=== PATIENT | female | born 1960 | race American Indian/Alaskan Native ===

== ENCOUNTER 2016-11-25 18:19 | Emergency (ER) | payer OTHER ==
[2016-11-25 18:48] VITALS: BP 159/90
[2016-11-25] MEDS ORDERED: MOTRIN PO ONE (19:37)
--- NOTE | 2016-11-25 20:57 | XRay Report ---
FINAL REPORT PROCEDURE: XR ELBOW 3+V RT TECHNIQUE: Right elbow radiographs, including AP, lateral, and oblique views. CPT 30829 HISTORY: elbow pain post fall COMPARISON: No prior studies are available for comparison. FINDINGS: Fracture (s) and/or Dislocation(s): None . Alignment: Normal . Joint space(s): Normal . Soft tissues: Normal . Bone mineralization: Normal . Foreign bodies: None . IMPRESSION: There is no fracture or dislocation. There is no joint effusion.
--- NOTE | 2016-11-25 21:03 | XRay Report ---
FINAL REPORT PROCEDURE: XR FOOT 3+V RT TECHNIQUE: Right foot radiographs, AP, lateral, and oblique views. CPT 79055 HISTORY: foot pain post fall COMPARISON: No prior studies are available for comparison. FINDINGS: Fracture (s) and/or Dislocation(s): None . Alignment: Normal . Joint space(s): There is mild degenerative arthrosis of the 1st metatarsophalangeal joint.. Soft tissues: Normal . Bone mineralization: Normal . Foreign bodies: None . Calcaneal spurring: There is a small inferior calcaneal spur.. IMPRESSION: There is no acute bony or soft tissue abnormality.
--- NOTE | 2016-11-25 21:07 | XRay Report ---
FINAL REPORT PROCEDURE: XR FEMUR 2+V RT TECHNIQUE: Right femur radiographs, AP and lateral views. HISTORY: thigh pain post fall COMPARISON: No prior studies are available for comparison. FINDINGS: Fracture (s) and/or Dislocation(s): None . Joint space(s): Normal . Soft tissues: Normal . Bone mineralization: Normal . Foreign bodies: None . IMPRESSION: Normal Examination
--- NOTE | 2016-11-26 05:44 | Emergency Department Report ---
Entered by REGAN CHOWDHURY, acting as scribe for BÁRBARA BRYANT NP. ED Fall HPI - General Chief Complaint: Fall Stated Complaint: FALL/ELBOW PAIN/LEG PAIN Time Seen by Provider: 11/25/16 19:11 Source: patient Mode of arrival: Ambulatory - History of Present Illness Initial Comments: This is a 56 y/o female, nontoxic, well nourished in appearance, no acute signs of distress with a PMHx of cancer, diabetes mellitus, and HTN presents to the ED c/o a fall injury that occurred last night. Patient states she tripped over a wooden pallet at work last night and subsequently fell on her right side. In the ED, patient c/o right elbow pain, right foot pain, and right thigh pain, but she denies LOC, head injury, trauma, abdominal pain, nausea, vomiting, fever , chills, chest pain, SOB, ROCHA or dizziness, numbness, and tingling. Patient stated she landed on her right elbow and right thigh area. Rates all pain a 3/ 10 in severity, which she describes as throbbing in quality. Aggravated with movement and alleviated with immobilization. NKDA. L[place]TON Complaint: fall -: Last night Fall From: standing When Fall Occurred: 24 hours [employer] Fall Witnessed: yes, by bystander Place Fall Occurred: work Loss of Consciousness: none Prolonged Down Time?: unclear Symptoms Prior to Fall: none Location - Extremities: Right: Elbow, Thigh, Foot Severity: mild Severity scale (0 -10): 3 Quality: other (throbbing) Context: tripped/slipped Associated Symptoms: denies. denies: headache, neck pain, numbness, weakness, chest paint, shortness of breath, abdominal pain, hematuria, unable to walk, lightheaded, vertigo, confusion - Related Data Home Medications Medication Instructions Recorded Confirmed Last Taken Lisinopril [Zestril TAB] 10 mg PO QDAY 05/29/15 05/29/15 05/28/15 Previous Rx's Medication Instructions Recorded Last Taken Type Azithromycin [Zithromax Z-KRISTINA] 250 mg PO QDAY #4 tablet 05/29/15 Unknown Rx Ibuprofen [Motrin] 800 mg PO Q8HR PRN #10 tablet 05/29/15 Unknown Rx Promethazine /Codeine 5 ml PO Q6H PRN #90 ml 05/29/15 Unknown Rx [Phenergan/Codeine 6.25-10 mg/5Ml] Ibuprofen [Motrin 600 MG tab] 600 mg PO Q8H PRN #30 tablet 11/25/16 Unknown Rx Allergies Allergy/AdvReac Type Severity Reaction Status Date / Time No Known Allergies Allergy Verified 11/25/16 18:43 ED Review of Systems Comment: All other systems reviewed and negative Constitutional: denies: chills, fever Eyes: denies: eye pain, eye discharge, vision change ENT: denies: ear pain, throat pain Respiratory: denies: cough, orthopnea, shortness of breath, SOB with exertion, SOB at rest, stridor, wheezing Cardiovascular: denies: chest pain, palpitations, dyspnea on exertion, orthopnea , edema, syncope, paroxysmal nocturnal dyspnea Endocrine: no symptoms reported Gastrointestinal: denies: abdominal pain, nausea, vomiting, diarrhea Genitourinary: denies: urgency, dysuria, discharge Musculoskeletal: arthralgia (RT foot pain, RT elbow pain, and RT thigh pain). denies: back pain, joint swelling, myalgia Skin: denies: rash, lesions Neurological: denies: headache, weakness, numbness, paresthesias, confusion, abnormal gait, vertigo Psychiatric: denies: anxiety, depression Hematological/Lymphatic: denies: easy bleeding, easy bruising ED Past Medical Hx - Past Medical History Previous Medical History?: Yes Hx Hypertension: Yes Hx Diabetes: Yes Hx of Cancer: Yes - Surgical History Past Surgical History?: Yes Additional Surgical History: HYSTERECTOMY - Family History Family history: no significant - Social History Smoking Status: Never Smoker Substance Use Type: None - Medications Home Medications: Home Medications Medication Instructions Recorded Confirmed Last Taken Type Azithromycin [Zithromax Z-KRISTINA] 250 mg PO QDAY #4 tablet 05/29/15 Unknown Rx Ibuprofen [Motrin] 800 mg PO Q8HR PRN #10 tablet 05/29/15 Unknown Rx Lisinopril [Zestril TAB] 10 mg PO QDAY 05/29/15 05/29/15 05/28/15 History Promethazine /Codeine 5 ml PO Q6H PRN #90 ml 05/29/15 Unknown Rx [Phenergan/Codeine 6.25-10 mg/5Ml] Ibuprofen [Motrin 600 MG tab] 600 mg PO Q8H PRN #30 tablet 11/25/16 Unknown Rx ED Physical Exam - General Limitations: No Limitations General appearance: alert, in no apparent distress - Head Head exam: Present: atraumatic, normocephalic - Eye Eye exam: Present: normal appearance, PERRL, EOMI. Absent: scleral icterus, conjunctival injection, nystagmus, periorbital swelling, periorbital tenderness Pupils: Present: normal accommodation - ENT ENT exam: Present: normal exam, normal orophraynx, mucous membranes moist, TM's normal bilaterally, normal external ear exam - Neck Neck exam: Present: normal inspection, full ROM. Absent: tenderness, meningismus, lymphadenopathy, thyromegaly - Respiratory Respiratory exam: Present: normal lung sounds bilaterally. Absent: respiratory distress, wheezes, rales, rhonchi, stridor, chest wall tenderness, accessory muscle use, decreased breath sounds, prolonged expiratory - Cardiovascular Cardiovascular Exam: Present: regular rate, normal rhythm, normal heart sounds. Absent: bradycardia, tachycardia, irregular rhythm, systolic murmur, diastolic murmur, rubs, gallop - GI/Abdominal GI/Abdominal exam: Present: soft, normal bowel sounds. Absent: distended, tenderness, guarding, rebound, rigid - Rectal Rectal exam: Present: deferred - Extremities Exam Extremities exam: Present: normal capillary refill. Absent: tenderness, pedal edema, joint swelling, calf tenderness - Expanded Upper Extremity Exam Right General: Present: normal inspection. Absent: laceration, abrasion, nail injury (#), foreign body, amputation, avulsion Shoulder Exam: Present: normal inspection, full ROM. Absent: tenderness, swelling, abrasion, laceration, ecchymosis, deformity, crepidus, dislocation, erythema, tenderness over AC joint Upper Arm exam: Present: normal inspection, full ROM. Absent: tenderness, swelling, abrasion, laceration, ecchymosis, deformity, crepidus, dislocation, erythema Elbow exam: Present: full ROM, tenderness (mild). Absent: normal inspection, swelling, abrasion, laceration, ecchymosis, deformity, crepidus, dislocation, erythema, effusion, pain w/ pronation/supination, tenderness over radial head Forearm Wrist exam: Present: normal inspection, full ROM. Absent: tenderness, swelling, abrasion, laceration, ecchymosis, deformity, crepidus, dislocation, erythema, tenderness over anatomical snuff box, pain with axial thumb loading Hand Wrist exam: Present: normal inspection, full ROM. Absent: tenderness, swelling, abrasion, laceration, ecchymosis, deformity, crepidus, dislocation, erythema, amputation, nail avulsion, subungual hematoma Neuro motor exam: Present: wrist extension intact, thumb opposition intact, thumb IP flexion intact, thumb adduction intact, fingers 2-5 abduction intact Neurosensory exam: Present: 2-point discrimination, radial nerve intact Vascular: Present: normal capillary refill, radial pulse (2+), brachial pulse, ulnar pulse. Absent: vascular compromise, Pallo, pulse deficit radial art - Expanded Lower Extremity Exam Right Hip exam: Present: normal inspection, full ROM, external rotation, internal rotation, pelvic stability. Absent: tenderness, swelling, abrasion, laceration , ecchymosis, deformity, crepidus, dislocation, erythema, shortening Upper Leg exam: Present: full ROM, tenderness (mild). Absent: normal inspection , swelling, abrasion, laceration, ecchymosis, deformity, crepidus, dislocation, erythema Knee exam: Present: normal inspection, full ROM, full knee extension. Absent: tenderness, swelling, abrasion, laceration, ecchymosis, deformity, crepidus, dislocation, erythema, effusion, pain w/ pronation/supination, posterior draw sign, pain/laxity with valgus, pain/laxity with varus Lower Leg exam: Present: normal inspection, full ROM. Absent: tenderness, swelling, abrasion, laceration, ecchymosis, deformity, crepidus, dislocation, erythema, palpable cord, Froylan's sign Ankle exam: Present: normal inspection, full ROM. Absent: tenderness, swelling , abrasion, laceration, ecchymosis, deformity, crepidus, dislocation, erythema, anterior draw sign Foot/Toe exam: Present: full ROM, tenderness (mild lateral RT foot). Absent: normal inspection, swelling, abrasion, laceration, ecchymosis, deformity, crepidus, dislocation, erythema, amputation, puncture wound, foreign body, calcaneal tenderness, tenderness at base of 5th metatarsal, nail avulsion, subungual hematoma Neuro vascular tendon exam: Present: no vascular compromise. Absent: pulse deficit, abnormal cap refill, motor deficit, sensory deficit, tendon deficit, extremity cold to touch, pallor, abnormal 2-point discrimination, decreased fine /light touch, foot drop, peroneal nerve deficit, significant pain with passive ROM of distal joint Gait: Positive: observed and normal - Back Exam Back exam: Present: normal inspection, full ROM. Absent: tenderness, CVA tenderness (R), CVA tenderness (L), muscle spasm, paraspinal tenderness, vertebral tenderness, rash noted - Neurological Exam Neurological exam: Present: alert, oriented X3, CN II-XII intact, normal gait, reflexes normal. Absent: motor sensory deficit - Psychiatric Psychiatric exam: Present: normal affect, normal mood - Skin Skin exam: Present: warm, dry, intact. Absent: rash ED Course Vital Signs 11/25/16 18:45 Temperature 97.5 F L Pulse Rate 66 Respiratory 18 Rate Blood Pressure 159/90 O2 Sat by Pulse 98 Oximetry - Reevaluation(s) Reevaluation #1: 11/25/16 20:08 Patient is speaks in full sentences with no signs of distress noted. ED Medical Decision Making - Medical Decision Making This is a 56-year-old female that presents with contusion to the right elbow, right fever, and right foot status post fall. X-ray has been obtained of elbow , femur, and foot were negative findings of any fractures or dislocation. Dictated by radiologist. Patient notified of x-ray findings with no further questions noted by the patient. Patient received ibuprofen by mouth in the ED. Patient was instructed to rest, elevate and ice extremities. Patient received ibuprofen at discharge. Patient also instructed to follow up with Dr. Hankins or another orthopedic doctor in 3-5 days or if symptoms such as numbness , tingling, or worsening symptoms return to emergency room as soon as possible. ED Disposition Clinical Impression: Contusion Qualifiers: Encounter type: initial encounter Contusion area: lower leg Laterality: right Qualified Code(s): S80.11XA - Contusion of right lower leg, initial encounter Right foot strain Qualifiers: Encounter type: initial encounter Qualified Code(s): S96.911A - Strain of unspecified muscle and tendon at ankle and foot level, right foot, initial encounter Strain of elbow, right Qualifiers: Encounter type: initial encounter Qualified Code(s): S56.911A - Strain of unspecified muscles, fascia and tendons at forearm level, right arm, initial encounter Disposition: DC-01 TO HOME OR SELFCARE Is pt being admited?: No Does the pt Need Aspirin: No Condition: Stable Instructions: Ibuprofen (By mouth), Contusion in Adults (ED), Foot Sprain (ED) , RICE Therapy (ED) Additional Instructions: follow up with Dr. Haknins or another orthopedic doctor in 3-5 days or if symptoms such as numbness, tingling, or worsening symptoms return to emergency room as soon as possible. Prescriptions: Ibuprofen [Motrin 600 MG tab] 600 mg PO Q8H PRN #30 tablet PRN Reason: Pain Referrals: PRIMARY CAREMD [Primary Care Provider] - 3-5 Days EILEEN HANKINS MD [Staff Physician] - 3-5 Days [facility] [Outside] - 3-5 Days [facility] [Outside] - 3-5 Days Forms: Work/School Release Form(ED) This documentation as recorded by the LUCIANA contreras JASMINE,accurately reflects the service I personally performed and the decisions made by ,BÁRBARA BRYANT, EXERCISE SCIENCE INSTRUCTOR.
== END 2016-11-25 21:35 ==
LOC: ED 18:19
DX: S56.911A Strain of unspecified muscles, fascia and tendons at forearm level, right arm, initial encounter (principal); S96.911A Strain of unspecified muscle and tendon at ankle and foot level, right foot, initial encounter; S80.11XA Contusion of right lower leg, initial encounter; I10 Essential (primary) hypertension; E11.9 Type 2 diabetes mellitus without complications; W18.39XA Other fall on same level, initial encounter; Y93.9 Activity, unspecified; Y92.9 Unspecified place or not applicable; Y99.9 Unspecified external cause status

== ENCOUNTER 2018-01-23 17:35 | Emergency (ER) | payer SELFPAY ==
[2018-01-23] MEDS ORDERED: DELTASONE PO ONE (21:22)
[2018-01-23] MEDS ORDERED: BENADRYL PO ONE (21:22)
--- NOTE | 2018-01-23 21:24 | Emergency Department Report ---
HPI - General Chief Complaint: Eye Problems Time Seen by Provider: 01/23/18 21:07 - HPI HPI: Patient is a 57-year-old female with a history of high blood pressure control treatment patient who presents to ED complaining of facial rash and left upper lid swelling 2 days. Patient states that last she noticed a little part of her left upper eye was swollen. She states by Tuesday she noticed upper lid is completely swollen and bumps appeared all over her face. Patient states she does not recall coming into contact with any allergens. She denies fever /chills/nausea/vomiting/loss of vision/eye pain/headache/ trauma to the eye ED Past Medical Hx - Past Medical History Hx Hypertension: Yes Hx Diabetes: Yes - Surgical History Additional Surgical History: HYSTERECTOMY - Social History Smoking Status: Never Smoker Substance Use Type: None - Medications Home Medications: Home Medications Medication Instructions Recorded Confirmed Last Taken Type Azithromycin [Zithromax Z-KRISTINA] 250 mg PO QDAY #4 tablet 05/29/15 Unknown Rx Lisinopril [Zestril TAB] 10 mg PO QDAY 05/29/15 05/29/15 05/28/15 History Promethazine /Codeine 5 ml PO Q6H PRN #90 ml 05/29/15 Unknown Rx [Phenergan/Codeine 6.25-10 mg/5Ml] Ibuprofen [Motrin 600 MG tab] 600 mg PO Q8H PRN #30 tablet 11/25/16 Unknown Rx Ibuprofen [Motrin 800 MG tab] 800 mg PO Q8HR PRN #10 tablet 01/23/18 Unknown Rx Polymyxin B Sulf/Trimethoprim 1 - 2 drops OP BID #10 ml 01/23/18 Unknown Rx [Polytrim Eye Drops] diphenhydrAMINE [Benadryl CAP] 25 mg PO Q8HR PRN #24 capsule 01/23/18 Unknown Rx predniSONE [Deltasone] 10 mg PO QDAY #6 tab 01/23/18 Unknown Rx ED Review of Systems ROS: Stated complaint: FACE SWELLING/BUMPS Other details as noted in HPI Constitutional: denies: chills, fever Eyes: other (left upper lid swelling). denies: eye pain, eye discharge, vision change ENT: denies: ear pain, throat pain, dental pain, hearing loss Respiratory: denies: cough, shortness of breath, wheezing Cardiovascular: denies: chest pain, palpitations Endocrine: no symptoms reported Gastrointestinal: denies: abdominal pain, nausea, diarrhea Genitourinary: denies: urgency, dysuria, discharge Skin: rash (bumps, non itching at the moment). denies: lesions, pruritus Neurological: denies: headache, weakness, paresthesias Physical Exam - Physical Exam Vital Signs: Vital Signs 01/23/18 17:43 Temperature 98.7 F Pulse Rate 80 Respiratory 16 Rate Blood Pressure 198/110 O2 Sat by Pulse 99 Oximetry Physical Exam: GENERAL: Alert and oriented x3, no apparent distress, Normal Gait, atraumatic. HEAD: Head is normocephalic and a-traumatic. Small, raised, lesions on face EYES: Extra ocular muscles are intact. Pupils are equal, round, and reactive to light and accommodation. Left upper lid swollen, nontender to palpation EARS: symetrical, atraumatic, non tender, ear canal clear and moderate cerumen, tympanic membrance non inflamed. gross auditory nml bilaterally. NOSE: Nose symetrical, Nontender,Nares appeared normal. MOUTH:Mouth is well hydrated and without lesions. Tonsils nonerythematous or swollen, Uvula midline, Tongue not elevated. Mucous membranes are moist. Posterior pharynx clear, no exudate or lesions. Patent airways. NECK: Supple. Non edematous, No carotid bruits. No lymphadenopathy or thyromegaly. No C-spine tenderness LUNGS: Symetrical with respiration, No wheezing, no rales or crackles, CTAB. HEART: S1, S2 present, regular rate and rhythm without murmur, no rubs, no gallops. Non tender to palpation SKIN: Warm and dry, facial generalized nonerythematous lesions, No ulceration or induration present. ED Course Vital Signs 01/23/18 17:43 Temperature 98.7 F Pulse Rate 80 Respiratory 16 Rate Blood Pressure 198/110 O2 Sat by Pulse 99 Oximetry ED Medical Decision Making - Medical Decision Making 57-year-old female presents to the allergic reaction ED course: Patient received Benadryl, prednisone and Motrin needed for pain I discussed the patient to apply warm compresses to the left upper eye lid. Vision is intact, no loss of vision Vital signs are normal patient is in no acute distress. Discussed follow-up with primary care physician. Sentence instructions. I discussed patient's symptoms worsen or new symptoms arise to return to ED. Critical care attestation.: If time is entered above; I have spent that time in minutes in the direct care of this critically ill patient, excluding procedure time. ED Disposition Clinical Impression: Allergic dermatitis, Periorbital cellulitis of left eye Disposition: - TO HOME OR SELFCARE Is pt being admited?: No Does the pt Need Aspirin: No Condition: Stable Instructions: Contact Dermatitis (ED), Blepharitis (ED), Orbital Cellulitis (ED ), Heat Pack Application (ED) Additional Instructions: Make sure to follow up with the primary care physician as discussed. Take all your medications as you've been prescribed. If you have any worsening symptoms or develop new symptoms please return to ED immediately. Prescriptions: diphenhydrAMINE [Benadryl CAP] 25 mg PO Q8HR PRN #24 capsule PRN Reason: Allergic Reaction Ibuprofen [Motrin 800 MG tab] 800 mg PO Q8HR PRN #10 tablet PRN Reason: Pain Polymyxin B Sulf/Trimethoprim [Polytrim Eye Drops] 1 - 2 drops OP BID #10 ml predniSONE [Deltasone] 10 mg PO QDAY #6 tab Referrals: PRIMARY CARE, [Primary Care Provider] - 3-5 Days NORMAN CONLEY MD [Staff Physician] - 3-5 Days [facility] [Outside] - 3-5 Days [facility] [Outside] - 3-5 Days Forms: Work/School Release Form(ED) Time of Disposition: 22:27
[2018-01-23] MEDS ORDERED: MOTRIN PO ONE (22:07)
[2018-01-23 23:41] VITALS: BP 180/91
== END 2018-01-23 23:45 | disposition home or self-care (01) ==
LOC: ED 17:35
DX: L23.9 Allergic contact dermatitis, unspecified cause (principal); L03.213 Periorbital cellulitis; I10 Essential (primary) hypertension; E11.9 Type 2 diabetes mellitus without complications; Z90.710 Acquired absence of both cervix and uterus
CPT/HCPCS: 99282; J7512